=== PATIENT | female | born 1995 | race Native Hawaiian/Other Pacific Islander ===

== ENCOUNTER 2020-09-29 14:19 | Outpatient (CLI) | payer OTHER | END 2020-09-29 21:14 | disposition home or self-care (01) | LOC: INF 14:19 | PROVIDERS: ATTEND Internal Medicine | DX: Z23 Encounter for immunization (principal) | CPT/HCPCS: 96372 ==

== ENCOUNTER 2020-10-26 13:23 | Outpatient (CLI) | payer OTHER | END 2020-10-26 21:20 | disposition home or self-care (01) | LOC: INF 13:23 | PROVIDERS: ATTEND Internal Medicine | DX: Z23 Encounter for immunization (principal) | CPT/HCPCS: 96372 ==

== ENCOUNTER 2020-12-29 13:07 | Emergency (ER) | payer OTHER ==
[~2020-12-29] VITALS: Ht 177.8 cm; Wt 86.2 kg
[2020-12-29 13:10] VITALS: BP 128/80; TEMP 97.1
== END 2020-12-29 14:10 | disposition home or self-care (01) ==
LOC: ED 13:07
DX: S61.239A Puncture wound without foreign body of unspecified finger without damage to nail, initial encounter (principal); W46.0XXA Contact with hypodermic needle, initial encounter; Y92.238 Other place in hospital as the place of occurrence of the external cause
CPT/HCPCS: 86706; 86803; 87535; 99283; G0432